=== PATIENT | female | born 1970 | race Two or more races ===

== ENCOUNTER 2020-12-28 10:45 | Emergency (ER) | payer BC ==
[~2020-12-28] VITALS: Ht 154.9 cm; Wt 68.0 kg
--- NOTE | 2020-12-28 11:00 | NUR ---
URINE SAMPLE OBTAINED AND GIVEN TO LAB
--- NOTE | 2020-12-28 11:10 | NUR ---
BIBS C/O ABDOMINAL PAIN X1 MONTH. PAIN IS LOCATED IN THE LUQ AND WAS EXACERBATED BY DRINKING COFFEE THIS MORNING. HX OF GERD AND BIPASS SURGERY 2 YEARS AGO. REPORTS EXCESSIVE GAS AND BELCHING. PT HAS APPOINTMENT FOR H. PYLORI TESTING , ENDOSCOPY, AND COLONOSCOPY THIS WEEK. DENIES USE OF NSAIDS.
[2020-12-28 11:12] LABS: BILIRUBIN,URINE Negative (NEGATIVE); COLOR,URINE YELLOW (YELLOW); LEUKOCYTE ESTERASE ,URINE Small (NEGATIVE); NITRITE, URINE Negative (NEGATIVE); PH,URINE 7.5 (5.0-8.0); PROTEIN,URINE Negative (NEGATIVE); UGLUCOSE Negative (NEGATIVE); UROBILINOGEN,URINE 0.2 EU/dL (0.2)
[2020-12-28 11:20] LABS: BASOPHILS # (AUTO) 0.1 K/uL (0.0-0.2); BASOPHILS % (AUTO) 0.6 % (0.0-2.0); EOSINOPHILS % (AUTO) 0.2 % (0.0-6.0); HEMATOCRIT 39 % (33-45); HEMOGLOBIN 12.4 g/dL (11.5-14.8); LYMPHOCYTES # (AUTO) 1.8 K/uL (0.8-4.8); LYMPHOCYTES % (AUTO) 18.1 % (20.0-44.0); MEAN CORPUSCULAR HGB CONC 32 g/dl (31.0-36.0); MEAN CORPUSCULAR VOLUME 81 fL (82-100); MONOCYTES # (AUTO) 0.6 K/uL (0.1-1.30); MONOCYTES % (AUTO) 5.8 % (2.0-12.0); NEUTROPHILS # (AUTO) 7.6 K/uL (1.8-8.9); NEUTROPHILS % (AUTO) 75.3 % (43.0-81.0); PLATELET COUNT (AUTO) 412 K/uL (150-450); RED BLOOD CELL COUNT(AUTO) 4.76 MIL/uL (4.0-5.2); WHITE BLOOD COUNT (AUTO) 10.1 K/uL (4.3-11.0)
[2020-12-28 11:30] LABS: CALCIUM, SERUM 8.9 mg/dL (8.5-10.1); CREATININE 0.7 mg/dL (0.6-1.3); POTASSIUM 3.8 mmol/L (3.5-5.1)
[2020-12-28] MEDS ORDERED: LIDOCAINE VISCOUS 2% UD 15 ML UDC MM ONE (11:30)
[2020-12-28] MEDS ORDERED: MAG HYDROX/AL HYDROX/SIMETH 30 ML UDC PO ONE (11:30)
[2020-12-28 11:35] LABS: RBC,URINE 0-2 /HPF (0-2)
[2020-12-28 11:36] LABS: ALBUMIN 3.6 g/dL (3.4-5.0); BILIRUBIN,DIRECT 0.1 mg/dL (0.0-0.2); BILIRUBIN,TOTAL 0.2 mg/dL (0.2-1.0); TOTAL PROTEIN, SERUM 7.7 g/dL (6.4-8.2)
[2020-12-28 11:36] LABS: BACTERIA,URINE Few /HPF (None Seen); SQUAMOUS EPITHELIAL CELL,UR Moderate /HPF (None Seen)
[2020-12-28] MEDS ORDERED: LIDOCAINE VISCOUS 2% UD 15 ML UDC ONE (11:59)
[2020-12-28] MEDS ORDERED: MAG HYDROX/AL HYDROX/SIMETH 30 ML UDC ONE (11:59)
[2020-12-28 12:13] VITALS: BP 139/77
== END 2020-12-28 12:15 | disposition home or self-care (01) ==
LOC: ER 10:48
DX: R10.12 Left upper quadrant pain (principal)
CPT/HCPCS: 36415; 76700-TC; 80048-TC; 80076-TC; 81001; 83690-TC; 85025-TC; 87086-TC

== ENCOUNTER 2024-07-19 17:32 | Emergency (ER) | payer BC ==
[~2024-07-19] VITALS: Ht 152.4 cm; Wt 79.4 kg
[2024-07-19] MEDS ORDERED: ONDANSETRON HCL/PF 4 MG/2 ML VIAL ONE (18:37)
[2024-07-19] MEDS: IV NS 0.9% 500 ML BAG IV ONE (19:00)
[2024-07-19] MEDS: ONDANSETRON HCL/PF 4 MG/2 ML VIAL IV ONE (19:01)
[2024-07-19 19:05] LABS: BASOPHILS # (AUTO) 0.1 K/uL (0.0-0.2); BASOPHILS % (AUTO) 0.7 % (0.0-2.0); HEMATOCRIT 45 % (33-45); HEMOGLOBIN 14.8 g/dL (11.5-14.8); LYMPHOCYTES # (AUTO) 1.3 K/uL (0.8-4.8); LYMPHOCYTES % (AUTO) 11.5 % (20.0-44.0); MEAN CORPUSCULAR HEMOGLOBIN 28 PG (26.0-33.0); MEAN CORPUSCULAR HGB CONC 33 g/dl (31.0-36.0); MEAN CORPUSCULAR VOLUME 85 fL (82-100); MONOCYTES # (AUTO) 0.5 K/uL (0.1-1.30); MONOCYTES % (AUTO) 4.2 % (2.0-12.0); NEUTROPHILS # (AUTO) 9.2 K/uL (1.8-8.9); NEUTROPHILS % (AUTO) 83.6 % (43.0-81.0); PLATELET COUNT (AUTO) 394 K/uL (150-450); RED BLOOD CELL COUNT(AUTO) 5.27 MIL/uL (4.0-5.2)
[2024-07-19 19:26] LABS: ALBUMIN 3.5 g/dL (3.4-5.0); BILIRUBIN,DIRECT 0.1 mg/dL (0.0-0.2); BILIRUBIN,TOTAL 0.4 mg/dL (0.2-1.0); CALCIUM, SERUM 9.6 mg/dL (8.5-10.1); CREATININE 0.6 mg/dL (0.6-1.3); POTASSIUM 3.8 mmol/L (3.5-5.1); TOTAL PROTEIN, SERUM 7.6 g/dL (6.4-8.2)
[2024-07-19] MEDS ORDERED: ONDA4TAB11 PO (19:48)
[2024-07-19 20:02] VITALS: BP 145/77; TEMP 98; O2SAT 98
== END 2024-07-19 20:03 | disposition home or self-care (01) ==
LOC: ER 17:53
DX: T50.901A Poisoning by unspecified drugs, medicaments and biological substances, accidental (unintentional), initial encounter (principal); E11.9 Type 2 diabetes mellitus without complications; R11.2 Nausea with vomiting, unspecified; Z98.84 Bariatric surgery status; Y92.89 Other specified places as the place of occurrence of the external cause
CPT/HCPCS: 99283; 96374; 85025; 80048; 80076; 36415; J2405; J7040